=== PATIENT | female | born 1975 | race Caucasian/White ===

== ENCOUNTER 2020-02-04 09:17 | Emergency (ER) | payer OTHER ==
[~2020-02-04] VITALS: Ht 160 cm; Wt 68.0 kg
[2020-02-04 09:22] VITALS: BP 126/79
[2020-02-04] MEDS ORDERED: SYMBICORT160 MCG/4. INH (09:24)
[2020-02-04] MEDS ORDERED: ALBUTEROL2.5 MG/0.1 INH (09:24)
[2020-02-04] MEDS ORDERED: PREDNISONE 20 M20 M1 PO (10:48)
[2020-02-04] MEDS ORDERED: AMOXICILLIN 50500 MG PO (10:48)
[2020-02-04] MEDS ORDERED: PROMETH-CODEIN 65 ML PO (10:48)
== END 2020-02-04 10:56 | disposition home or self-care (01) ==
LOC: M.ERS 09:17
DX: J32.9 Chronic sinusitis, unspecified (principal); Z20.828 Contact with and (suspected) exposure to other viral communicable diseases; Z98.51 Tubal ligation status; Z88.6 Allergy status to analgesic agent

== ENCOUNTER 2021-02-22 21:01 | Emergency (ER) | payer OTHER ==
[~2021-02-22] VITALS: Ht 160 cm; Wt 77.1 kg
[~2021-02-22 21:01] MED LIST: ALBUTEROL2.5 MG/0.1 INH; AMOXICILLIN 50500 MG PO; PREDNISONE 20 M20 M1 PO; PROMETH-CODEIN 65 ML PO; SYMBICORT160 MCG/4. INH
[2021-02-22 21:36] LABS: BE -2.4 mmol/L (-2 to +3); PCO2 VENOUS 29.3 mmHg (41.0-51.0); PO2 VENOUS 133.6 mmHg (35.0-45.0)
[2021-02-22 21:39] LABS: ABSOLUTE EOSINOPHILS 0.1 thou/uL (0.0-0.7); ABSOLUTE MONOCYTES 0.8 thou/uL (0.0-1.2); ABSOLUTE NEUTROPHILS 2.9 thou/uL (1.6-8.1); BASOPHILS 0.7 %; EOSINOPHILS 1.9 %; HEMATOCRIT 40.9 % (37.0-47.0); HEMOGLOBIN 13.9 gm/dL (12.0-15.0); LYMPHOCYTES 34.9 %; MCV 88.4 fL (80.0-100.0); MONOCYTES 13.4 %; MPV 7.7 fl. (7.2-11.1); NUCLEATED RBCS 0 /100WBC; PLATELET COUNT* 251 thou/uL (150-400); POLYS 49.1 %; RBC 4.63 mil/uL (4.20-5.00); RDW-CV 20.5 % (10.5-14.5); WBC 5.9 thou/uL (4.0-11.0)
[2021-02-22 21:47] LABS: CALCIUM 8.7 mg/dL (8.5-10.1); CREATININE 0.7 mg/dL (0.6-1.3); POTASSIUM 3.8 mmol/L (3.5-5.1)
[2021-02-22 21:57] LABS: TOTAL BILIRUBIN 0.5 mg/dL (<0.1-1.0); TOTAL PROTEIN 7.7 g/dL (6.4-8.2)
[2021-02-22 22:20] LABS: PLATELET ESTIMATE ADEQUATE
[2021-02-22 22:21] LABS: ANISOCYTOSIS 1+; MACROCYTES 1+
[2021-02-23 00:12] LABS: URINE BILIRUBIN NEGATIVE (Negative); URINE BLOOD NEGATIVE (Negative); URINE CLARITY CLEAR; URINE COLOR YELLOW; URINE GLUCOSE-RANDOM NEGATIVE (Negative); URINE KETONES NEGATIVE (Negative); URINE LEUKOCYTES-REFLEX NEGATIVE (Negative); URINE NITRITE-REFLEX NEGATIVE (Negative); URINE PROTEIN NEGATIVE (Negative); URINE UROBILINOGEN 0.2 E.U./dl (0.2-1.0)
[2021-02-23] MEDS ORDERED: PROAIR HFA8.5 GM INH (00:16)
[2021-02-23] MEDS ORDERED: PREDNISONE50 MG PO (00:16)
[2021-02-23] MEDS ORDERED: ZOFRAN ODT4 MG PO (00:16)
[2021-02-23 00:20] LABS: AMP/METHAMP Negative (Negative); BARBITURATES POSITIVE (Negative); BENZODIAZEPINES POSITIVE (Negative); COCAINE Negative (Negative); METHADONE Negative (Negative); OPIATES Negative (Negative); PCP Negative (Negative); THC Negative (Negative)
[2021-02-23 00:44] VITALS: BP 165/70
--- NOTE | 2021-02-23 16:42 | EKG ---
[place] [address] ELECTROCARDIOGRAM REPORT Name: KARI GRANT Room: [facility]#: [id number] Admission: 02/22/21 Attend Phys: Discharge: 02/23/21 Date of : 73 Date of Service: 02/22/212104 Report #: [id number] THIS REPORT FOR: //name// [facility] ED Test Date: 2021-02-22 Test Time: 21:05:39 Pat Name: KARI GRANT Department: Room: Gender: Glass Scullion: : 1975 Requested By: Anita Ring Order Number: [id number] MD: Rene Conklin Measurements Intervals [place] Rate: 80 P: 85 NC: 152 QRS: 99 QRSD: 94 T: 63 QT: 456 QTc: 527 Interpretive Statements Sinus rhythm Borderline right axis deviation Prolonged QT interval No previous ECG available for comparison Electronically Signed On 02-23-2021 16:41:45 [employer] by Rene Conklin [email or web address] <ELECTRONICALLY SIGNED> By: Rene Conklin MD, [facility] 02/23/211640 04 04 Rene Conklin MD, FACC /EPI
== END 2021-02-23 00:44 | disposition home or self-care (01) ==
LOC: M.ERS 21:01
PROVIDERS: Emergency Medicine
DX: R19.7 Diarrhea, unspecified (principal); Z20.822 Contact with and (suspected) exposure to COVID-19; R53.1 Weakness; F17.200 Nicotine dependence, unspecified, uncomplicated; Z98.51 Tubal ligation status; Z90.89 Acquired absence of other organs; Z88.8 Allergy status to other drugs, medicaments and biological substances; Z79.2 Long term (current) use of antibiotics; Z79.899 Other long term (current) drug therapy